=== PATIENT | female | born 1990 | race Caucasian/White ===

== ENCOUNTER 2018-03-15 10:10 | Inpatient (IN) | payer OTHER ==
[2018-03-15] MEDS ORDERED: PROMETHAZINE HCL 25 MG/1 ML VIAL IVPUSH ONE (11:20)
[2018-03-15] MEDS ORDERED: BUTORPHANOL TARTRATE 1 MG/ML VIAL IVPUSH PRN (11:20)
[2018-03-15] MEDS ORDERED: DINOPROSTONE 10 MG VAGINAL SUPPOSITORY VG ONE (11:24)
[2018-03-15] MEDS ORDERED: AMPICILLIN - 2 GM in SODIUM CHLORIDE 100 ML IVPB ONE (11:25)
[2018-03-15] MEDS ORDERED: DEXTROSE 5%-LACTATED RINGERS 1,000 ML IV SCH (11:30)
--- NOTE | 2018-03-15 11:33 | HP ---
Past Medical History - Primary Care Physician PCP:: Derrek Garcia - Admission Chief Complaint: 41 weeks, for cervidil induction History Source: Patient Limitations to Obtaining History: Language Barrier - Past Surgical History Hx Myomectomy: No Hx Transabdominal Cerclage: No - Smoking History Smoking history: Former smoker Have you smoked in the past 12 months: No - Alcohol/Substance Use Hx Alcohol Use: No - Social History Usual Living Arrangement: Yes: With Spouse History of Recent Travel: No Home Medications - Allergies Allergies/Adverse Reactions: Allergies Allergy/AdvReac Type Severity Reaction Status Date / Time No Known Allergies Allergy Verified 06/09/13 11:19 - Home Medications Home Medications: Ambulatory Orders Acetaminophen [Tylenol .Regular Strength -] 650 mg PO Q3H PRN #1 tablet Ibuprofen [Motrin -] 600 mg PO Q4H PRN #1 tablet 06/11/13 Review of Systems - Review of Systems Constitutional: reports: No Symptoms Eyes: reports: No Symptoms HENT: reports: No Symptoms Neck: reports: No Symptoms Cardiovascular: reports: No Symptoms Respiratory: reports: No Symptoms Gastrointestinal: reports: No Symptoms Genitourinary: reports: No Symptoms Breasts: reports: No Symptoms Reported Musculoskeletal: reports: No Symptoms Integumentary: reports: No Symptoms Neurological: reports: No Symptoms Endocrine: reports: No Symptoms Hematology/Lymphatic: reports: No Symptoms Psychiatric: reports: No Symptoms Physical Exam - Maternity Constitutional: Yes: Well Nourished, No Distress, Calm Eyes: Yes: WNL, Conjunctiva Clear, EOM Intact HENT: Yes: WNL, Atraumatic, Normocephalic Neck: Yes: WNL, Supple, Trachea Midline Cardiovascular: Yes: WNL, Regular Rate and Rhythm Breast(s): Yes: WNL - Abdominal Exam/OB Fundal Height: 40 Number of Fetuses: Single Presentation: Vertex Contractions: No Intensity: Unaware Monitor Mode: External Heart Rate Location: [facility] Category: I Accelerations: Uniform Decelerations: None - Physical Exam Musculoskeletal: Yes: WNL Extremities: Yes: Other (varicose vein lower extrimities) Edema: Yes Edema: LLE: Trace, RLE: Trace Deep Tendon Reflex Grade: Normal +2 Psychiatric: Yes: Oriented Hemorrhage Risk Assessment - Risk Factors Medium Risk Factors: Yes: Multiple gestation Risk Score: 1 Risk Level: Medium Risk Problem List - Problems (1) with 41 completed weeks gestation Code(s): Z3A.41 - 41 WEEKS GESTATION OF (2) Elective induction of labor planned Code(s): RNT9466 - Assessment/Plan admit, fhm, GBS positve, iv ampicillin cervidil rna discussed pain mangement
[2018-03-15 11:49] VITALS: BMI 40.6
[2018-03-15 11:56] LABS: BASO % 0.3 % (0-2.0); EOS % 0.4 % (0-4.5); HEMATOCRIT 37.7 % (32.4-45.2); HEMOGLOBIN 12.8 GM/dL (10.7-15.3); LYMPH % 18.8 % (8-40); MCH 28.1 pg (25.7-33.7); MEAN CELL VOLUME 82.7 fl (80-96); MEAN PLT VOLUME 7.9 fl (7.5-11.1); MONO % 5.2 % (3.8-10.2); NEUT % 75.3 % (42.8-82.8); PLATELET COUNT 205 K/MM3 (134-434); RBC 4.56 M/mm3 (3.60-5.2); RDW 14.3 % (11.6-15.6); WHITE BLOOD COUNT 10.4 K/mm3 (4.0-10.0)
[2018-03-15] MEDS ORDERED: AMPICILLIN SODIUM 2 GM VIAL ONE (11:59)
[2018-03-15 12:11] LABS: INR 0.96 (0.82-1.09); PROTHROMBIN TIME (PATIENT) 10.8 SEC (9.7-13.0)
[2018-03-15 12:13] LABS: ACTIVATED PTT 22.9 SECONDS (25.2-36.5)
[2018-03-15 12:24] LABS: ANION GAP 10 (8-16); BLOOD UREA NITROGEN 7 mg/dL (7-18); CHLORIDE 103 mmol/L (98-107); CO2 24 mmol/L (21-32); CREATININE 0.5 mg/dL (0.55-1.02); GLUCOSE,RANDOM 81 mg/dL (74-106); POTASSIUM 3.8 mmol/L (3.5-5.1); SODIUM 137 mmol/L (136-145)
[2018-03-15] MEDS: ELECTROLYTE-148 SOLN 1,000 ML IV SCH ×2 (12:30→15:30)
[2018-03-15] MEDS ORDERED: FENTANYL/BUPIVACAINE/NS/PF - PCEA - 50 ML DISP.SYRIN EP ONE (12:40)
[2018-03-15] MEDS ORDERED: NALOXONE HCL 0.4 MG/ML VIAL IVPUSH PRN (12:49)
[2018-03-15] MEDS ORDERED: FENTANYL/BUPIVACAINE/NS/PF - PCEA - 50 ML DISP.SYRIN EP SCH (13:00)
--- NOTE | 2018-03-15 13:17 | PN ---
Progress Note (short form) - Note Progress Note: cx 3 cm 70 vx -2. fhr cat 1, regular contraction. has epidural Problem List - Problems (1) with 41 completed weeks gestation Code(s): Z3A.41 - 41 WEEKS GESTATION OF (2) Elective induction of labor planned Code(s): UDU0628 -
[2018-03-15] MEDS ORDERED: AMPICILLIN SODIUM 1 GM VIAL ONE (15:31)
[2018-03-15] MEDS: AMPICILLIN - 1 GM in SODIUM CHLORIDE 100 ML IVPB SCH ×2 (15:57→22:00)
[2018-03-15] MEDS ORDERED: OXYTOCIN 20 UNITS in 0.9% NS 20 UNIT/1,000 ML INFUS.BAG IV ONE ×2 (16:37→18:04)
[2018-03-15] MEDS ORDERED: LIDO 2%/EPI 1:200000 PRESRVFRE (20 ML SDVIAL) ONE (16:46)
[2018-03-15] MEDS: OXYTOCIN 20 UNITS in 0.9% NS 20 UNIT/1,000 ML INFUS.BAG IV SCH ×2 (17:02→18:42)
[2018-03-15] MEDS ORDERED: WITCH HAZEL 50% (TUCKS) 40 PAD/JAR PAD TP PRN (17:19)
[2018-03-15] MEDS ORDERED: BENZOCAINE 28 GM HEMORRHOIDAL OINTMENT TP PRN (17:19)
[2018-03-15] MEDS ORDERED: BISACODYL 10 MG SUPP.RECT RC PRN (17:19)
[2018-03-15] MEDS: FERROUS SO4 325 MG TABLET (FP) PO SCH (17:25)
[2018-03-15] MEDS ORDERED: METHYLERGONOVINE MALEATE 0.2 MG/1 ML AMP IM ONE (17:30)
[2018-03-15] MEDS: METHYLERGONOVINE MALEATE 0.2 MG/1 ML AMP IM PRN ×2 (17:35→22:21)
[2018-03-15] MEDS ORDERED: ONDANSETRON 4 MG/2 ML VIAL ONE (18:01)
[2018-03-15] MEDS ORDERED: ONDANSETRON 4 MG/2 ML VIAL IVPB ONE (18:30)
[2018-03-15] MEDS ORDERED: ONDANSETRON 4 MG/2 ML VIAL IVPUSH ONE (18:30)
[2018-03-15] MEDS: ACETAMINOPHEN 325 MG TABLET (FP) PO PRN (21:37)
[2018-03-15] MEDS: IBUPROFEN 600 MG TABLET (FP) PO PRN (21:37)
[2018-03-16] MEDS: IBUPROFEN 600 MG TABLET (FP) PO PRN ×2 (05:45→16:46)
[2018-03-16] MEDS: ACETAMINOPHEN 325 MG TABLET (FP) PO PRN ×2 (05:46→16:47)
[2018-03-16] MEDS: BENZOCAINE 20% 57 GM BOTTLE TP PRN ×2 (08:00→21:07)
[2018-03-16] MEDS: FERROUS SO4 325 MG TABLET (FP) PO SCH ×2 (08:00→16:37)
--- NOTE | 2018-03-16 08:26 | PN ---
Post Progress Note - Subjective Subjective: c/o cramps. bleeding is normal now Post Day: 1 Type of Delivery: Vital Signs: Vital Signs Temperature 98.2 F 03/16/18 05:41 Pulse Rate 72 03/16/18 05:41 Respiratory Rate 20 03/16/18 05:41 Blood Pressure 100/52 03/16/18 05:41 O2 Sat by Pulse Oximetry (%) 100 03/15/18 18:30 Breast Exam: Yes: Soft, Other (plans to BF ). No: Engorged Uterus: Yes: Fundus Firm, Fundus below umbilicus Lochia: Yes: Rubra Lochia, amount: Moderate Extremities: Yes: Calves non-tender Perineum: Yes: Intact, Laceration Activity: Ambulating - Labs Labs: CBC WBC 10.4 K/mm3 (4.0-10.0) H 03/15/18 11:36 RBC 4.56 M/mm3 (3.60-5.2) D 03/15/18 11:36 Hgb 12.8 GM/dL (10.7-15.3) D 03/15/18 11:36 Hct 37.7 % (32.4-45.2) D 03/15/18 11:36 MCV 82.7 fl (80-96) 03/15/18 11:36 MCH 28.1 pg (25.7-33.7) 03/15/18 11:36 MCHC 34.0 g/dl (32.0-36.0) 03/15/18 11:36 RDW 14.3 % (11.6-15.6) D 03/15/18 11:36 Plt Count 205 K/MM3 (134-434) 03/15/18 11:36 MPV 7.9 fl (7.5-11.1) 03/15/18 11:36 Absolute Neuts (auto) 7.8 # 03/15/18 11:36 Neutrophils % 75.3 % (42.8-82.8) 03/15/18 11:36 Lymphocytes % 18.8 % (8-40) D 03/15/18 11:36 Monocytes % 5.2 % (3.8-10.2) 03/15/18 11:36 Eosinophils % 0.4 % (0-4.5) 03/15/18 11:36 Basophils % 0.3 % (0-2.0) 03/15/18 11:36 Nucleated RBC % 0 % (0-0) 03/15/18 11:36 Problem List - Problems (1) Normal vaginal delivery Code(s): O80 - ENCOUNTER FOR FULL-TERM UNCOMPLICATED DELIVERY (2) Follow-up, , routine Code(s): Z39.2 - ENCOUNTER FOR ROUTINE FOLLOW-UP Assessment/Plan stable , s/p inj Methergine x3 for continued trickling pp. plan repeat cbc pending
[2018-03-16 08:31] LABS: BASO % 0.3 % (0-2.0); EOS % 0.1 % (0-4.5); HEMATOCRIT 28.3 % (32.4-45.2); HEMOGLOBIN 9.7 GM/dL (10.7-15.3); LYMPH % 16.2 % (8-40); MCH 28.7 pg (25.7-33.7); MCHC 34.4 g/dl (32.0-36.0); MEAN CELL VOLUME 83.5 fl (80-96); MEAN PLT VOLUME 7.8 fl (7.5-11.1); NEUT % 78.4 % (42.8-82.8); PLATELET COUNT 156 K/MM3 (134-434); RBC 3.39 M/mm3 (3.60-5.2); RDW 14.4 % (11.6-15.6); WHITE BLOOD COUNT 9.8 K/mm3 (4.0-10.0)
[2018-03-16] MEDS: PRENATAL VITAMINS W/ FOLIC ACID TABLET (FP) PO SCH (10:01)
[2018-03-16] MEDS ORDERED: SENNOSIDES/DOCUSATE COMBO (SENNA PLUS) TABLET (UD) PO PRN (22:00)
[2018-03-17] MEDS: ACETAMINOPHEN 325 MG TABLET (FP) PO PRN ×2 (03:47→07:39)
[2018-03-17] MEDS: IBUPROFEN 600 MG TABLET (FP) PO PRN ×2 (03:48→07:41)
[2018-03-17] MEDS: FERROUS SO4 325 MG TABLET (FP) PO SCH (07:36)
[2018-03-17] MEDS: PRENATAL VITAMINS W/ FOLIC ACID TABLET (FP) PO SCH (10:08)
[2018-03-17 10:28] VITALS: BP 108/61; PULSE 85; TEMP 98.3
--- NOTE | 2018-03-17 11:44 | DS ---
Physical Exam-PROVIDER SERVICE REPRESENTATIVE Vital Signs: Vital Signs Temperature 98.3 F 03/17/18 10:00 Pulse Rate 85 03/17/18 10:00 Respiratory Rate 20 03/17/18 10:00 Blood Pressure 108/61 03/17/18 10:00 O2 Sat by Pulse Oximetry (%) 100 03/15/18 18:30 Constitutional: Yes: Well Nourished Eyes: Yes: Conjunctiva Clear HENT: Yes: Atraumatic Neck: Yes: Supple Cardiovascular: Yes: Regular Rate and Rhythm Respiratory: Yes: Regular Gastrointestinal: Yes: Normal Bowel Sounds External Genitalia: Yes: Normal Vaginal Exam: Yes: Normal Cervix: Yes: Normal Uterus: Yes: Firm ....Post : Yes: Uterus firm Breast(s): Yes: WNL Extremities: Yes: WNL Neurological: Yes: Alert, Oriented ...Motor Strength: WNL Psychiatric: Yes: Alert, Oriented Labs: CBC, BMP 03/16/18 07:40 03/15/18 11:36 Delivery - Delivery Type of Anesthesia: Local, Epidural Episiotomy/Laceration: 2nd degree EBL (cc): 500 Delivery, Single - Stages of Labor Date 1st Stage Initiatied: 03/15/18 Time 1st Stage Initiated: 11:30 Date 2nd Stage Initiated: 03/15/18 Time 2nd Stage Initiated: 16:53 Date of Delivery: 03/15/18 Time of Delivery: 16:59 Time Placenta Delivered: 17:02 - Condition of Infant Waitstaff Captain/Senior Financial Consultant Present: No Gender: Female Weight: 9 lb 3 oz Position: OP Total Hours ROM (Hrs/Mins): 0hrs 9min - 1 Minute Total Score: 9 5 Minutes Total Score: 9 - Feeding Plan Initial Plan: Elected not to breastfeed exclusively throughout hospitalization Discharge Summary Reason For Visit: INDUCTION OF LABOR Current Active Problems Elective induction of labor planned (Acute) Follow-up, , routine (Acute) Normal vaginal delivery (Acute) with 41 completed weeks gestation (Acute) Procedures: Principal: Normal spontaneous vaginal delivery Hospital Course: Routine care Condition: Good - Instructions Diet, Activity, Other Instructions: Regular diet No douching, no sexual intercourse x 6 weeks F/U in clinic in 6 weeks Disposition: HOME - Home Medications Comprehensive Discharge Medication List: Ambulatory Orders Ferrous Sulfate [Feosol] 325 mg PO BID 03/15/18 Vitamins (Sjr) - 1 tab PO DAILY 03/15/18
== END 2018-03-17 12:31 | disposition home or self-care (01) | DRG 775 ==
LOC: JLDR 10:10 → J3W 20:10
PROVIDERS: ADMIT Obstetrics & Gynecology; ATTEND Obstetrics & Gynecology
PROC: 10E0XZZ Delivery of Products of Conception, External Approach (ICD-10-PCS; principal; 2018-03-15)
PROC: 0KQM0ZZ Repair Perineum Muscle, Open Approach (ICD-10-PCS; 2018-03-15)
PROC: 0W8NXZZ Division of Female Perineum, External Approach (ICD-10-PCS; 2018-03-15)
PROC: 3E0P7VZ Introduction of Hormone into Female Reproductive, Via Natural or Artificial Opening (ICD-10-PCS; 2018-03-15)
DX: O70.1 Second degree perineal laceration during delivery (principal); Z37.0 Single live birth; Z22.330 Carrier of Group B streptococcus; Z3A.41 41 weeks gestation of pregnancy
CPT/HCPCS: 36415; 59409; 80048; 85025; 85461; 85610; 85730; 86593; 86850; 86900; 86901; 86999

== ENCOUNTER 2018-03-20 00:01 | Emergency (ER) | payer OTHER ==
[2018-03-20 00:34] VITALS: BMI 27.1
--- NOTE | 2018-03-20 01:07 | PDOC ---
History of Present Illness <Jakob Sousa - Last Filed: 03/20/18 01:46> - General History Source: Patient Exam Limitations: No Limitations - History of Present Illness Initial Comments: 03/20/18 01:33 The patient is a 27-year-old female with no reported past medical history, delivered baby on 03/15/2018, presents to the emergency department with sister in law with bilateral breast swelling with pain for the past 2 days. As per the sister in law, the patients been experiencing swollen breasts for the past 2 days with lumps noted near the right arm, no relief indicated with a hot compress, hot showers, or with the use of breast pumps. The patient states associated concern of subjective fever. Denies any medication use. Denies nipple discharge. Denies chills, cough or a headache. Denies chest pain or shortness of breath. Denies abdominal pain or back pain. Denies dysuria, hematuria, frequency or urgency to urinate. Denies diarrhea or constipation. Denies nausea or vomiting. Denies vertigo or lightheadedness Allergies: NKDA Social history: None reported Surgical history: None reported PCP: Kavin Morales trust vault clerk: Dr. Mccall <Nanette Wing - Last Filed: 03/20/18 01:52> - General Chief Complaint: Pain Stated Complaint: BREAST PROBLEM Time Seen by Provider: 03/20/18 01:06 Past History - Past Medical History Asthma: No Cancer: No Cardiac Disorders: No Diabetes: No HTN: No Seizures: No Thyroid Disease: No - Suicide/Smoking/Psychosocial Hx Smoking History: Never smoked Have you smoked in the past 12 months: No Information on smoking cessation initiated: No Hx Alcohol Use: No Drug/Substance Use Hx: No Hx Substance Use Treatment: No <Jakob Sousa - Last Filed: 03/20/18 01:46> <Nanette Wing - Last Filed: 03/20/18 01:52> - Past Medical History Allergies/Adverse Reactions: Allergies Allergy/AdvReac Type Severity Reaction Status Date / Time No Known Allergies Allergy Verified 03/20/18 00:32 Home Medications: Ambulatory Orders Ferrous Sulfate [Feosol] 325 mg PO BID 03/15/18 Vitamins (Sjr) - 1 tab PO DAILY 03/15/18 Review of Systems - Review of Systems Able to Perform ROS?: Yes Comments:: 03/20/18 01:33 CONSTITUTIONAL: No fever, no chills, no fatigue EYES: No visual changes ENT: No ear pain, no sore throat CARDIOVASCULAR: No chest pain, no palpitations BREAST: (+) Bilateral swelling to the breast w/ lumps. RESPIRATORY: No cough, no SOB GI: No abdominal pain, no nausea, no vomiting, no constipation, no diarrhea GENITOURINARY: No dysuria, no frequency, no hematuria MUSKULOSKELETAL: No backpain, no joint pain, no myalgias SKIN: No rash NEURO: No headache <Nanette Wing - Last Filed: 03/20/18 01:52> *Physical Exam - Vital Signs Last Vital Signs Temp Pulse Resp BP Pulse Ox 97.5 F L 75 20 114/63 99 03/20/18 00:33 03/20/18 00:33 03/20/18 00:33 03/20/18 00:33 03/20/18 00:33 <Jakob Sousa - Last Filed: 03/20/18 01:46> - Vital Signs Last Vital Signs Temp Pulse Resp BP Pulse Ox 97.5 F L 75 20 114/63 99 03/20/18 00:33 03/20/18 00:33 03/20/18 00:33 03/20/18 00:33 03/20/18 00:33 - Physical Exam Comments: 03/20/18 01:34 CONSTITUTIONAL: Well-appearing; well-nourished; in no apparent distress HEAD: Normocephalic; atraumatic EYES: PERRL; EOM intact ENMT: External appears normal; normal oropharynx NECK: Supple; non-tender; no cervical lymphadenopathy CARD: Normal S1, S2; no murmurs, rubs, or gallops BREAST: (+) Bilateral breast engorged, with several irregular lumps palpable bilaterally but more to the right breast. No nipple discharge or erythema . RESP: Normal chest excursion with respiration; breath sounds clear and equal bilaterally; no wheezes, rhonchi, or rales ABD: Soft, non-distended; non-tender; no palpable organomegaly, no palpable hernias EXT: Normal ROM in all four extremities; non-tender to palpation; distal pulses intact SKIN:Warm, dry, no rash NEURO: No focal neurological deficiencies. <Nanette Wing - Last Filed: 03/20/18 01:52> Medical Decision Making - Medical Decision Making 03/20/18 01:47 Patient with breast engorgement without evidence of mastitis. Instructions provided on obtaining milk. Will discharge. <Jakob Sousa - Last Filed: 03/20/18 01:46> *DC/Admit/Observation/Transfer <Jakob Sousa - Last Filed: 03/20/18 01:46> - Attestations Scribe Attestion: 03/20/18 01:37 Documentation prepared by Nanette Wing, acting as medical historian for Jakob Sousa MD. <Nanette Wing - Last Filed: 03/20/18 01:52> Diagnosis at time of Disposition: Breast engorgement, obstetric, condition - Discharge Dispostion Disposition: HOME Condition at time of disposition: Stable - Referrals Referrals: Kavin Alston [Primary Care Provider] - - Patient Instructions Printed Discharge Instructions: Breast Engorgement (Alternative Therapy) Additional Instructions: Return immediately if you develop redness or fever of 101. Take Tylenol or ibuprofen for pain. Follow-up with COMMUNICATION EQUIPMENT REPAIRER as needed. - Post Discharge Activity
[2018-03-20 01:51] VITALS: BP 120/80; PULSE 80; TEMP 98.2
== END 2018-03-20 01:51 | disposition home or self-care (01) ==
LOC: JER 00:01
DX: O92.29 Other disorders of breast associated with pregnancy and the puerperium (principal); O92.79 Other disorders of lactation
CPT/HCPCS: 99283-25